=== PATIENT | male | born 1975 | race Hispanic/Latino ===

== ENCOUNTER 2024-12-02 06:24 | Observation (INO) | payer OTHER ==
[2024-11-24 15:24] LABS: BASOPHILS % 0.4 % (0.0-1.0); EOSINOPHILS # (AUTO) 0.1 (0.0-0.4); EOSINOPHILS % 0.6 % (0.0-6.0); HEMATOCRIT 53.5 % (38.2-49.6); HEMOGLOBIN 17.7 g/dL (14.0-18.0); LYMPHOCYTES # (AUTO) 2.2 (1.0-3.2); LYMPHOCYTES % 26.2 % (18.0-39.1); MEAN CORPUSCULAR HEMOGLOBIN 30.5 pg (28-32); MEAN CORPUSCULAR HGB CONC 33.1 g/dL (31-35); MEAN CORPUSCULAR VOLUME 92.1 fL (81-99); MONOCYTES # (AUTO) 0.6 (0.2-0.8); MONOCYTES % 6.7 % (4.4-11.3); NEUTROPHILS # (AUTO) 5.5 (2.1-6.9); NEUTROPHILS % 65.7 % (38.7-80.0); PLATELET COUNT 215 x10e3/uL (140-360); RED BLOOD COUNT 5.81 x10e6/uL (4.3-5.7); RED CELL DISTRIBUTION WIDTH 12.8 % (11.7-14.4); WHITE BLOOD COUNT 8.35 x10e3/uL (4.8-10.8)
[2024-11-24 15:47] LABS: ALBUMIN 4.1 g/dL (3.5-5.0); ALBUMIN/GLOBULIN RATIO 1.1 (0.8-2.0); ANION GAP 18.7 mmol/L (8-16); BILIRUBIN,TOTAL 0.4 mg/dL (0.2-1.2); CALCIUM 9.4 mg/dL (8.4-10.2); CREATININE, SERUM 1.3 mg/dL (0.72-1.25); POTASSIUM 3.7 mmol/L (3.5-5.1); TOTAL PROTEIN 7.9 g/dL (6.5-8.1)
[~2024-12-02 06:24] MED LIST: LOSARTAN-HCTZ1 EAC2 PO; ZESTRIL10 MG PO; ZYRTEC-D TABLE1 EACH PO
[2024-12-02] MEDS: LACTATED RINGER'S 1,000 ML ONE (07:34)
[2024-12-02] MEDS ORDERED: ROCURONIUM BROMIDE 1 ML IV ONE (08:11)
[2024-12-02] MEDS ORDERED: MIDAZOLAM HCL 2 MG/2 ML VIAL ONE (08:11)
[2024-12-02] MEDS ORDERED: LIDOCAINE HCL 2% LOCAL INJ 5 ML SDV VIAL INJ ONE (08:11)
[2024-12-02] MEDS ORDERED: PROPOFOL IV EMULSION 10 MG/ML 20 ML VIAL ONE ×2 (08:11→09:08)
[2024-12-02] MEDS ORDERED: FENTANYL CITRATE/PF 100MCG/2 ML INJ ONE (08:11)
[2024-12-02] MEDS ORDERED: EPINEPHRINE HCL 1:1000 1ML 1 MG/ML AMP ONE (08:16)
[2024-12-02] MEDS ORDERED: SODIUM CHLORIDE 0.9% INJ 10 ML VIAL ONE (08:26)
[2024-12-02] MEDS ORDERED: EPHEDRINE SULFATE INJ 50 MG/ML VIAL ONE (09:15)
[2024-12-02] MEDS ORDERED: DEXAMETHASONE SOD PHOS INJ 4 MG/ML SDV ONE (09:25)
[2024-12-02] MEDS ORDERED: METOCLOPRAMIDE HCL 10 MG/2ML VIAL ONE (09:25)
[2024-12-02] MEDS ORDERED: CEFTRIAXONE 1 GM VIAL ONE (09:26)
[2024-12-02] MEDS ORDERED: GLYCOPYRROLATE INJ 0.2 MG/ML VIAL ONE ×2 (09:27→10:25)
[2024-12-02] MEDS ORDERED: KETAMINE 50MG/5ML SYR ONE (09:28)
[2024-12-02] MEDS ORDERED: ONDANSETRON HCL INJ 2MG/ML 2ML 2 MG/ML VIAL ONE (10:25)
[2024-12-02] MEDS ORDERED: NEOSTIGMINE 1 MG/ML 10ML VIAL ONE (10:25)
[2024-12-02] MEDS: SODIUM CHLORIDE 0.9% 1000ML 1,000 ML IV SCH (10:45)
[2024-12-02] MEDS ORDERED: ONDANSETRON HCL INJ 2MG/ML 2ML 2 MG/ML VIAL IV PRN (10:45)
[2024-12-02] MEDS ORDERED: HYDROCODONE/APAP 7.5MG-325MG 1 EA TAB PO PRN (10:45)
[2024-12-02] MEDS ORDERED: KETOROLAC TROMETHAMINE 30 MG/ML VIAL IV PRN (10:45)
[2024-12-02] MEDS: FENTANYL CITRATE/PF 100MCG/2 ML INJ ONE (11:41)
[2024-12-02 12:45] VITALS: BP 142/97; PULSE 84; TEMP 97.6
[2024-12-02] MEDS: HYDROMORPHONE 1MG/1ML INJ IV PRN (13:48)
[2024-12-02 14:07] VITALS: BP 142/97; PULSE 84; RESP 16; TEMP 97.6; O2SAT 96
[2024-12-02 16:53] VITALS: BP 157/101; PULSE 89; RESP 18; TEMP 97.9; O2SAT 96
[2024-12-02 20:00] VITALS: BP 143/78; PULSE 93; RESP 20; TEMP 98.2; O2SAT 97
[2024-12-02 21:00] VITALS: BP 143/78; PULSE 93; RESP 20; TEMP 98.2; O2SAT 97
[2024-12-02] MEDS: MAGNESIUM HYDROXIDE 30 ML UDC PO ONE (22:04)
[2024-12-02] MEDS: LISINOPRIL 20 MG TAB PO SCH (22:15)
[2024-12-03] VITALS: BP 121/91; PULSE 83; RESP 20; TEMP 98; O2SAT 100
[2024-12-03 06:49] LABS: BASOPHILS % 0.1 % (0.0-1.0); HEMOGLOBIN 15.1 g/dL (14.0-18.0); LYMPHOCYTES # (AUTO) 1.1 (1.0-3.2); MEAN CORPUSCULAR HEMOGLOBIN 30.2 pg (28-32); MEAN CORPUSCULAR HGB CONC 34.3 g/dL (31-35); MONOCYTES # (AUTO) 0.5 (0.2-0.8); MONOCYTES % 2.8 % (4.4-11.3); NEUTROPHILS # (AUTO) 16.2 (2.1-6.9); PLATELET COUNT 228 x10e3/uL (140-360); RED CELL DISTRIBUTION WIDTH 12.9 % (11.7-14.4); WHITE BLOOD COUNT 17.96 x10e3/uL (4.8-10.8)
[2024-12-03 07:02] LABS: ANION GAP 16.3 mmol/L (8-16); CALCIUM 8.6 mg/dL (8.4-10.2); CREATININE, SERUM 1.23 mg/dL (0.72-1.25); POTASSIUM 4.3 mmol/L (3.5-5.1)
[2024-12-03 08:00] VITALS: BP 126/77; PULSE 82; RESP 18; TEMP 98.2; O2SAT 95
[2024-12-03 09:00] VITALS: BP 121/91; PULSE 82; RESP 18; TEMP 98.2; O2SAT 95
[2024-12-03 12:00] VITALS: BP 143/91; PULSE 70; RESP 19; TEMP 98.2; O2SAT 95
[2024-12-03 12:22] LABS: BASOPHILS % 0.1 % (0.0-1.0); HEMATOCRIT 45.8 % (38.2-49.6); HEMOGLOBIN 15.6 g/dL (14.0-18.0); LYMPHOCYTES # (AUTO) 1.1 (1.0-3.2); LYMPHOCYTES % 5.6 % (18.0-39.1); MEAN CORPUSCULAR HEMOGLOBIN 30.4 pg (28-32); MEAN CORPUSCULAR HGB CONC 34.1 g/dL (31-35); MEAN CORPUSCULAR VOLUME 89.3 fL (81-99); MONOCYTES # (AUTO) 0.8 (0.2-0.8); MONOCYTES % 3.9 % (4.4-11.3); NEUTROPHILS # (AUTO) 17.3 (2.1-6.9); NEUTROPHILS % 89.7 % (38.7-80.0); PLATELET COUNT 240 x10e3/uL (140-360); RED BLOOD COUNT 5.13 x10e6/uL (4.3-5.7); WHITE BLOOD COUNT 19.33 x10e3/uL (4.8-10.8)
== END 2024-12-03 16:06 | disposition home or self-care (01) ==
LOC: OR 06:24 → PACU V 10:35 → MED/SURG3 12:46
PROVIDERS: ADMIT Surgery; ATTEND Surgery
DX: T85.79XA Infection and inflammatory reaction due to other internal prosthetic devices, implants and grafts, initial encounter (principal); K43.2 Incisional hernia without obstruction or gangrene; L02.216 Cutaneous abscess of umbilicus; L03.316 Cellulitis of umbilicus; L98.499 Non-pressure chronic ulcer of skin of other sites with unspecified severity; Y83.2 Surgical operation with anastomosis, bypass or graft as the cause of abnormal reaction of the patient, or of later complication, without mention of misadventure at the time of the procedure; Y92.009 Unspecified place in unspecified non-institutional (private) residence as the place of occurrence of the external cause; I10 Essential (primary) hypertension; Z01.810 Encounter for preprocedural cardiovascular examination; Z01.812 Encounter for preprocedural laboratory examination; Z79.899 Other long term (current) drug therapy
CPT/HCPCS: 11008; 36415 ×2; 49615; 80048; 80053; 85025 ×2; 88302; 93005; G0378 ×2; J0171; J0694 ×2; J0696; J1100; J1171 ×2; J2003; J2250; J2405; J2704; J2710; J2765; J3010; J7030 ×2; J7121